=== PATIENT | female | born 1940 | race Caucasian/White ===

== ENCOUNTER → 2018-08-20 10:29 | Outpatient (BNVA) | payer MEDICARE, OTHER, SELFPAY | PROVIDERS: Visit Provider Student in an Organized Health Care Education/Training Program | DX: M25.561 Pain in right knee (principal); G89.29 Other chronic pain; Z96.651 Presence of right artificial knee joint | CPT/HCPCS: 20610; 99204; 99214 ==

== ENCOUNTER 2018-08-20 12:14 | Outpatient (REF) | payer MEDICARE, OTHER, SELFPAY ==
[2018-08-20 12:44] LABS: Clarity CLOUDY; Nucleated Cells 1062 /MM3 (0-0); Source R KNEE
[2018-08-20 12:45] LABS: Mononuclear Cells 90 % (0-0); Polynuclear Cells 10 % (0-0)
== END 2018-08-20 12:34 ==
LOC: LBN 12:14
PROVIDERS: Visit Provider Student in an Organized Health Care Education/Training Program
DX: T84.84XA Pain due to internal orthopedic prosthetic devices, implants and grafts, initial encounter (principal); Z96.651 Presence of right artificial knee joint
CPT/HCPCS: 87070; 87205; 89051; 89060

== ENCOUNTER 2018-08-30 00:44 | Outpatient (CLI) | payer MEDICARE, OTHER, SELFPAY ==
--- NOTE | 2018-08-30 07:59 | DI.NM_ITS ---
SYMPTOMS/DIAGNOSIS: PAINFUL TKA RT, T84.84XA, Z96.651 3 PHASE BONE SCAN: Bone scan was performed with intravenous infusion of 25.7 millicuries of Technetium 99 labeled Methylene Diphosphonate with 3 phase imaging of the knees. A couple of small focal areas of increased uptake are seen in the lumbar region associated with scoliosis presumably representing degenerative change. There is mildly increased uptake of the tibiofemoral joints of both knees with expected appearance of tibiofemoral joint replacement on the right. There is significant increased uptake in the patella on the right, consider patellar fracture or marked degenerative change involving patellofemoral joint although the femur in the region of the patellofemoral joint shows relatively normal uptake. CONCLUSION: Increased uptake associated with right patella. Consider patellar fracture. Radiographs or CT suggested for further evaluation.
== END 2018-08-30 01:04 ==
PROVIDERS: PCP Family Medicine; Visit Provider Student in an Organized Health Care Education/Training Program
DX: T84.84XA Pain due to internal orthopedic prosthetic devices, implants and grafts, initial encounter (principal); Z96.651 Presence of right artificial knee joint; R93.7 Abnormal findings on diagnostic imaging of other parts of musculoskeletal system
CPT/HCPCS: 78315

== ENCOUNTER 2021-02-09 15:52 | Outpatient (REF) | payer MEDICARE, OTHER, SELFPAY ==
[2021-02-09 19:17] LABS: Abs Immature Grans 0.03 10^3/uL (0.0-0.06); Absolute Basophil Count 0.02 10^3/uL (0.0-0.2); Absolute Eosinophil Count 0.11 10^3/uL (0.0-0.7); Absolute Lymphocyte Count 1.51 10^3/uL (1.2-3.4); Absolute Monocyte Count 0.54 10^3/uL (0.1-0.8); Absolute Neutrophil Count 5.73 10^3/uL (1.2-6.7); Basophils % 0.3; Eosinophils % 1.4; HCT 38.6 % (36.0-46.0); HGB 12.3 g/dL (11.2-15.7); Immature Grans % 0.4; MCH 27.6 pg (27.0-33.0); MCHC 31.9 % (32.0-36.0); MCV 86.7 fL (80-95); MPV 12.2 fL (8.0-11.0); Monocytes % 6.8; Neutrophils % 72.1; Nucleated RBC 0 %; Platelet Count 206 10^3/uL (130-400); RBC 4.45 10^6/uL (3.93-5.22); RDW 13.4 % (11.7-14.6); WBC 7.94 10^3/uL (4.4-10.8)
[2021-02-09 19:39] LABS: Anion Gap 7.7 mmol/L (3-11); BUN 20 mg/dL (7-18); CO2 28.3 mmol/L (21.0-32.0); CREATININE 0.8 mg/dL (0.55-1.02); Calcium 9.3 mg/dL (8.5-10.1); Chloride 103 mmol/L (98-107); Glucose 199 mg/dL (74-106); Potassium 3.7 mmol/L (3.5-5.1); Sodium 139 mmol/L (136-145)
== END 2021-02-09 15:53 | disposition home or self-care (01) ==
LOC: NCHCN 15:52
PROVIDERS: PCP Family Medicine; Visit Provider Physician Assistant
DX: R10.32 Left lower quadrant pain (principal)
CPT/HCPCS: 80048; 80053; 85025

== ENCOUNTER 2022-02-01 14:51 | Outpatient (REF) | payer MEDICARE, SELFPAY ==
[2022-02-01 22:52] LABS: ALT 24 U/L (14-59); AST 18 U/L (15-37); Albumin 3.8 g/dL (3.4-5.0); Alkaline Phosphatase 93 U/L (46-116); BUN 14 mg/dL (7-18); Bilirubin, Total 0.6 mg/dL (0.2-1.0); CREATININE 0.6 mg/dL (0.55-1.02); Calculated LDL 149 mg/dL (<100); Chloride 105 mmol/L (98-107); Cholesterol 230 mg/dL (<200); Glucose 87 mg/dL (74-106); HDL Cholesterol 60 mg/dL (40-60); Potassium 4.4 mmol/L (3.5-5.1); Sodium 142 mmol/L (136-145); Total Protein 6.7 g/dL (6.4-8.2); Triglyceride 107 mg/dL (<150)
== END 2022-02-01 14:52 | disposition home or self-care (01) ==
LOC: NCHCN 14:51
PROVIDERS: PCP Family Medicine; Visit Provider Physician Assistant
DX: E78.5 Hyperlipidemia, unspecified (principal); I65.23 Occlusion and stenosis of bilateral carotid arteries; K21.9 Gastro-esophageal reflux disease without esophagitis; R73.9 Hyperglycemia, unspecified
CPT/HCPCS: 80053; 80061; 83036

== ENCOUNTER 2023-01-31 20:06 | Outpatient (REF) | payer MEDICARE, SELFPAY ==
[2023-01-31 21:20] LABS: Anion Gap 4.7 mmol/L (3-11); BUN 16 mg/dL (7-18); CO2 30.3 mmol/L (21.0-32.0); CREATININE 0.7 mg/dL (0.55-1.02); Calcium 9.4 mg/dL (8.5-10.1); Chloride 104 mmol/L (98-107); Estimated GFR 87.37 (mL/min/1.73m2); Glucose 102 mg/dL (74-106); Potassium 4.8 mmol/L (3.5-5.1); Sodium 139 mmol/L (136-145)
== END 2023-01-31 20:07 | disposition home or self-care (01) ==
LOC: NCHCN 20:06
PROVIDERS: PCP Family Medicine; Visit Provider Physician Assistant
DX: R73.03 Prediabetes (principal)
CPT/HCPCS: 80048

== ENCOUNTER 2023-08-18 19:49 | Outpatient (REF) | payer MEDICARE, SELFPAY ==
[2023-08-18 18:35] LABS: Abs Immature Grans 0.02 10^3/uL (0.0-0.06); Absolute Basophil Count 0.04 10^3/uL (0.0-0.2); Absolute Eosinophil Count 0.11 10^3/uL (0.0-0.7); Absolute Lymphocyte Count 1.62 10^3/uL (1.2-3.4); Absolute Monocyte Count 0.67 10^3/uL (0.1-0.8); Absolute Neutrophil Count 7.95 10^3/uL (1.2-6.7); Basophils % 0.4; Eosinophils % 1.1; HCT 38.9 % (36.0-46.0); HGB 12.7 g/dL (11.2-15.7); Immature Grans % 0.2; Lymphocytes % 15.6; MCH 28.1 pg (27.0-33.0); MCHC 32.6 % (32.0-36.0); MCV 86 fL (80-95); MPV 11.6 fL (8.0-11.0); Monocytes % 6.4; Neutrophils % 76.3; Platelet Count 207 10^3/uL (130-400); RBC 4.52 10^6/uL (3.93-5.22); RDW 13.9 % (11.7-14.6); WBC 10.41 10^3/uL (4.4-10.8)
[2023-08-18 18:43] LABS: ALT 16 U/L (14-59); AST 14 U/L (15-37); Albumin 3.4 g/dL (3.4-5.0); Alkaline Phosphatase 94 U/L (46-116); Anion Gap 9.4 mmol/L (3-11); BUN 23 mg/dL (7-18); Bilirubin, Total 0.7 mg/dL (0.2-1.0); CO2 26.6 mmol/L (21.0-32.0); CREATININE 0.9 mg/dL (0.55-1.02); Calcium 9.9 mg/dL (8.5-10.1); Chloride 100 mmol/L (98-107); Estimated GFR 64.63 (mL/min/1.73m2); Glucose 176 mg/dL (74-106); Potassium 3.7 mmol/L (3.5-5.1); Sodium 136 mmol/L (136-145); Total Protein 7.5 g/dL (6.4-8.2)
== END 2023-08-18 19:50 | disposition home or self-care (01) ==
LOC: NCHCN 19:49
PROVIDERS: PCP Family Medicine; Visit Provider Physician Assistant
DX: R10.30 Lower abdominal pain, unspecified (principal); Z87.19 Personal history of other diseases of the digestive system
CPT/HCPCS: 80053; 85025

== ENCOUNTER 2024-02-02 09:09 | Outpatient (REF) | payer MEDICARE, SELFPAY ==
[2024-02-02 18:36] LABS: Anion Gap 6.9 mmol/L (3-11); BUN 19 mg/dL (7-18); CO2 29.1 mmol/L (21.0-32.0); CREATININE 0.6 mg/dL (0.55-1.02); Calcium 9.7 mg/dL (8.5-10.1); Chloride 105 mmol/L (98-107); Estimated GFR 90.12 (mL/min/1.73m2); Glucose 109 mg/dL (74-106); Potassium 4.7 mmol/L (3.5-5.1); Sodium 141 mmol/L (136-145)
== END 2024-02-02 09:10 | disposition home or self-care (01) ==
LOC: NCHCN 09:09
PROVIDERS: PCP Family Medicine; Visit Provider Physician Assistant
DX: R73.03 Prediabetes (principal)
CPT/HCPCS: 80048

== ENCOUNTER → 2024-06-13 10:17 | Outpatient (BNVA) | payer MEDICARE, SELFPAY | PROVIDERS: PCP Physician Assistant; Referring Provider Physician Assistant; Visit Provider Podiatrist | DX: I83.93 Asymptomatic varicose veins of bilateral lower extremities; B35.1 Tinea unguium; M20.42 Other hammer toe(s) (acquired), left foot; L84 Corns and callosities; R09.89 Other specified symptoms and signs involving the circulatory and respiratory systems; R60.0 Localized edema; L65.9 Nonscarring hair loss, unspecified | CPT/HCPCS: 99204 ==

== ENCOUNTER 2024-10-01 10:20 | Outpatient (REF) | payer MEDICARE, SELFPAY ==
[2024-10-01 20:27] LABS: Anion Gap 7.9 mmol/L (3-11); BUN 15 mg/dL (7-18); CO2 29.1 mmol/L (21.0-32.0); CREATININE 0.7 mg/dL (0.55-1.02); Calcium 9.6 mg/dL (8.5-10.1); Chloride 104 mmol/L (98-107); Estimated GFR 86.83 (mL/min/1.73m2); Glucose 96 mg/dL (74-106); Potassium 4.4 mmol/L (3.5-5.1); Sodium 141 mmol/L (136-145)
== END 2024-10-01 10:21 | disposition home or self-care (01) ==
LOC: NCHCN 10:20
PROVIDERS: PCP Physician Assistant; Visit Provider Nurse Practitioner Family
DX: I10 Essential (primary) hypertension (principal)
CPT/HCPCS: 80048

== ENCOUNTER 2024-11-05 11:59 | Outpatient (REF) | payer MEDICARE, SELFPAY ==
[2024-11-05 20:35] LABS: TSH 2.16 uIU/mL (0.36-3.74)
[2024-11-05 20:58] LABS: C Diff PCR Negative (Negative)
[2024-11-06 22:14] LABS: Campylobacter PCR Negative (Negative); Salmonella PCR Negative (Negative); Shiga Toxin PCR Negative (Negative); Shigella/Enteroinvasive Ecoli Negative (Negative)
== END 2024-11-05 12:00 | disposition home or self-care (01) ==
LOC: NCHCN 11:59
PROVIDERS: PCP Physician Assistant; Visit Provider Nurse Practitioner Family
DX: R19.7 Diarrhea, unspecified (principal)
CPT/HCPCS: 87329; 87493; 87505; 83630; 84443

== ENCOUNTER 2025-02-05 11:48 | Outpatient (REF) | payer MEDICARE, SELFPAY ==
[2025-02-05 20:48] LABS: Calculated LDL 158 mg/dL (<100); Cholesterol 249 mg/dL (<200); HDL Cholesterol 67 mg/dL (>or=50); Triglyceride 121 mg/dL (<150)
== END 2025-02-05 11:49 | disposition home or self-care (01) ==
LOC: NCHCN 11:48
PROVIDERS: PCP Physician Assistant; Visit Provider Nurse Practitioner Family
DX: E78.5 Hyperlipidemia, unspecified (principal)
CPT/HCPCS: 80061

== ENCOUNTER 2025-07-09 17:58 | Outpatient (REF) | payer MEDICARE, SELFPAY ==
[2025-07-11 10:00] LABS: Alpha 1 Antitrypsin,Serum 136 mg/dL (90-200)
== END 2025-07-09 17:59 | disposition home or self-care (01) ==
LOC: NCHCN 17:58
PROVIDERS: PCP Physician Assistant; Visit Provider Nurse Practitioner Family
DX: R06.02 Shortness of breath (principal)
CPT/HCPCS: 82103

== ENCOUNTER 2025-07-11 09:15 | Outpatient (CLI) | payer MEDICARE, SELFPAY ==
[2025-07-11] MEDS: Levalbuterol HFA 15 GM INH 4 PUFF IH (14:00)
[2025-07-11] MEDS: Inhaler, Assist Device 1 EACH MC (14:00)
--- NOTE | 2025-07-14 10:04 | W.PFT ---
Date of service: 07/11/25 Time of Service: 12:44 Pulmonary Function Test Result Indications: Dyspnea with exertion, chronic cough Impression 1. Good patient effort was noted. ATS standards for reproducibility were met. 2. Spirometry showed a FEV1:FVC ratio that was lower than predicted. Can be seen with mild obstructive lung disease or be a normal variant. 3. Following the administration of a bronchodilator there was not a significant response
== END 2025-07-11 09:16 | disposition home or self-care (01) ==
LOC: RT 09:15
PROVIDERS: PCP Physician Assistant; Visit Provider Internal Medicine Pulmonary Disease
DX: R06.02 Shortness of breath (principal); R06.09 Other forms of dyspnea
CPT/HCPCS: 94060

== ENCOUNTER → 2025-07-15 09:45 | Outpatient (BNVA) | payer MEDICARE, SELFPAY | PROVIDERS: PCP Physician Assistant; Referring Provider Physician Assistant; Visit Provider Internal Medicine Pulmonary Disease | DX: R06.00 Dyspnea, unspecified (principal); J45.30 Mild persistent asthma, uncomplicated; J30.9 Allergic rhinitis, unspecified | CPT/HCPCS: 99215 ==

== ENCOUNTER → 2025-08-18 10:45 | Outpatient (BNVA) | payer MEDICARE, SELFPAY | PROVIDERS: PCP Physician Assistant; Referring Provider Physician Assistant; Visit Provider Internal Medicine Pulmonary Disease | DX: R06.00 Dyspnea, unspecified (principal); J30.9 Allergic rhinitis, unspecified; H40.9 Unspecified glaucoma | CPT/HCPCS: 99214 ==

== ENCOUNTER 2025-10-02 20:24 | Outpatient (REF) | payer MEDICARE, SELFPAY ==
[2025-10-02 21:06] LABS: TSH (W/Ref FT4) 1.96 uIU/mL (0.55-4.78)
== END 2025-10-02 20:25 | disposition home or self-care (01) ==
LOC: NCHCN 20:24
PROVIDERS: PCP Physician Assistant; Visit Provider Nurse Practitioner Family
DX: R00.2 Palpitations (principal)
CPT/HCPCS: 84443